=== PATIENT | female | born 1980 | race Caucasian/White ===

== ENCOUNTER 2023-07-09 10:15 | Outpatient (OUT) | payer OTHER, SELFPAY ==
--- NOTE | 2023-07-09 10:42 | XR_ITS ---
[facility] [id number] Patient Name: ROX RAGSDALE MRN: [id number] date: 1980 Sex: F Assigned Patient Location: RAD Current Patient Location: [facility] Accession/Order Number: [id number] Exam Date: 07/09/2023 10:35 Report Date: 07/09/2023 12:35 At the request of: NAREN SEVERINO Procedure: XR ankle RT min 3V PROCEDURE: XR ankle RT min 3V, XR tibia fibula RT 2V HISTORY: Ankle Sprain ; right lower leg and ankle pain after slipping and falling COMPARISON: None. FINDINGS: BONES:No fracture, acute abnormality, or significant arthropathy. Minimal residual appearance of old growth plate of distal fibula. SOFT TISSUES: Moderate lateral soft tissue swelling. EFFUSION:None visible. OTHER: Negative. XR/XR ankle RT min 3V IMPRESSION: 1. Lateral swelling suggesting soft tissue injury. 2. No acute bone abnormality. Electronically authenticated by: JAHAIRA THRASHER Date: 07/09/2023 12:35
--- NOTE | 2023-07-09 10:42 | XR_ITS ---
[facility] [place] [id number] Patient Name: ROX RAGSDALE MRN: [id number] date: 1980 Sex: F Assigned Patient Location: [facility] Current Patient Location: [facility] Accession/Order Number: [id number] Exam Date: 07/09/2023 10:35 Report Date: 07/09/2023 12:35 At the request of: NAERN SEVERINO Procedure: XR tibia fibula RT 2V PROCEDURE: XR ankle RT min 3V, XR tibia fibula RT 2V HISTORY: Ankle Sprain ; right lower leg and ankle pain after slipping and falling COMPARISON: None. FINDINGS: BONES:No fracture, acute abnormality, or significant arthropathy. Minimal residual appearance of old growth plate of distal fibula. SOFT TISSUES: Moderate lateral soft tissue swelling. EFFUSION:None visible. OTHER: Negative. XR/XR tibia fibula RT 2V IMPRESSION: 1. Lateral swelling suggesting soft tissue injury. 2. No acute bone abnormality. Electronically authenticated by: JAHAIRA THRASHER Date: 07/09/2023 12:35
== END 2023-07-09 10:16 | disposition home or self-care (01) ==
LOC: RAD 10:19
PROVIDERS: PCP Nurse Practitioner; Visit Provider Nurse Practitioner Family
DX: S93.401A Sprain of unspecified ligament of right ankle, initial encounter (principal)
CPT/HCPCS: 73590; 73610

== ENCOUNTER 2024-07-16 06:48 | Outpatient (OUT) | payer BC, SELFPAY ==
[2024-07-16 07:23] LABS: Basophils Absolute Auto 0.1 10^3/uL (0.0-0.1); Basophils Percent Auto 1.3 % (0.2-2.0); Eosinophils Absolute Auto 0.1 10^3/uL (0.0-0.7); Eosinophils Percent Auto 1.3 % (0.9-7.0); Hemoglobin 12.6 g/dL (12.0-16.0); Immature Granulocytes Abs Auto 0.03 10^3/uL (0.00-0.03); Immature Granulocytes Pct Auto 0.3 % (0.0-0.5); Lymphocytes Absolute Auto 3.3 10^3/uL (1.2-3.8); Lymphocytes Percent Auto 37.8 % (20.5-60.0); Mean Corpuscular HGB Conc 33.2 g/dL (29.9-35.2); Mean Corpuscular Hemoglobin 31.3 pg (26.7-34.0); Mean Corpuscular Volume 94.3 fL (81.0-99.0); Mean Platelet Volume 9.9 fL (9.5-13.5); Monocytes Absolute Auto 0.6 10^3/uL (0.3-0.8); Monocytes Percent Auto 6.4 % (1.7-12.0); Neutrophils Absolute Auto 4.6 10^3/uL (1.4-6.5); Neutrophils Percent Auto 52.9 % (43.0-75.0); Platelet Count 225 10^3/uL (150-450); Red Blood Count 4.03 10^6/uL (4.20-5.40); Red Cell Distribution Width 11.9 % (11.0-15.0); White Blood Count 8.6 10^3/uL (4.0-11.0)
[2024-07-16 07:48] LABS: Bilirubin Urine NEGATIVE (NEGATIVE); Blood Urine TRACE-I (NEGATIVE); Clarity Urine CLEAR (CLEAR); Color Urine YELLOW (YELLOW); Glucose Urine UA NEGATIVE (NEGATIVE); Ketones Urine NEGATIVE (NEGATIVE); Leukocyte Esterase Urine NEGATIVE (NEGATIVE); Nitrite Urine NEGATIVE (NEGATIVE); Protein Urine NEGATIVE (NEG/TRACE); pH Urine 6.5 (5.0-9.0)
[2024-07-16 08:08] LABS: Bacteria Urine SMALL #/HPF (NONE SEEN)
[2024-07-16 08:10] LABS: Cast Seen? NONE SEEN #/LPF (NONE SEEN); Crystals Seen? None Seen #/HPF (None Seen); Mucus Urine SMALL (NONE SEEN); RBC Urine 0-2 #/HPF (0-2); Squamous Epithelial Cell Urine FEW #/LPF (NONE/RARE); Trichomonas Urine SEEN (NONE SEEN); Urine Culture Indicated YES; WBC Urine 0-2 #/HPF (NONE SEEN)
[2024-07-16 08:12] LABS: Alanine Aminotransferase 23 U/L (14-59); Albumin Globulin Ratio 1.4; Alkaline Phosphatase 54 U/L (46-116); Anion Gap 13.8; Aspartate Amino Transferase 20 U/L (15-37); BUN Creatinine Ratio 11.3; Bilirubin Total 0.6 mg/dL (0.2-1.0); Calcium 8.9 mg/dL (8.5-10.1); Chloride 105 mmol/L (98-107); Chol HDL Ratio 3.2; Cholesterol 180 mg/dL (<=200); Estimated GFR (African America >60 (>=60); Estimated GFR (Non-African Ame >60 (>=60); Globulin 2.8 g/dL; Glucose 84 mg/dL (74-106); HDL Cholesterol 56 mg/dL (40-60); LDL Cholesterol Calculated 118.8 mg/dL; Potassium 3.8 mmol/L (3.5-5.1); Sodium 140 mmol/L (136-145); Thyroid Stimulating Hormone 2.621 uIU/mL (0.358-3.740); Total Protein 6.8 g/dL (6.4-8.2); Triglycerides 26 mg/dL (<=150); VLDL CHOLESTEROL 5.2 mg/dL
== END 2024-07-16 06:49 | disposition home or self-care (01) ==
LOC: LAB 06:50
PROVIDERS: PCP Nurse Practitioner; Visit Provider Nurse Practitioner
DX: Z00.00 Encounter for general adult medical examination without abnormal findings (principal)
CPT/HCPCS: 36415; 80053; 80061; 81001; 84443; 85025; 87086

== ENCOUNTER 2024-08-08 09:24 | Emergency (ER) | payer BC, SELFPAY ==
[2024-08-08 09:28] VITALS: BP 111/87; PULSE 88; TEMP 37.9; O2SAT 100; BMI 23.3
--- OUTSIDE RECORDS SUMMARY | 2024-08-08 09:29 | XMS_ITS | CCD ---
Author Organization [facility] Care Team Providers Care Maintenance Mechanic Technician Name Role Phone Unavailable Primary Care Provider UnavailKimi Vences Primary Care Provider DANIEL FAJARDO Referring Unavailable DANIEL FAJARDO Referring Unavailable SHELIA KIMI J. Primary Care Unavailable DANIEL FAJARDO Referring Unavailable SHELIA KIMI JSage Primary Care Unavailable DANIEL FAJARDO Referring Unavailable SHELIA, KIMI J. Primary Care Unavailable DANIEL FAJARDO Referring Unavailable SHELIA, KIMI J. Primary Care Unavailable DANIEL FAJARDO Attending Unavailable SUMISAUGUSTODANIEL W Admitting Unavailable DANIEL FAJARDO Attending Unavailable SHELIA, KIMI J. Primary Care Unavailable Laurihbrenda Kimi JSage Primary Care Provider [phone] AICHHOLZ, TILE PRESSER KIMI Attending Unavailable AICHHOLZ, TILE PRESSER KIMI Consulting Unavailable AICHHOLZ, TILE PRESSER KIMI Primary Care Unavailable AICHHOLZ, TILE PRESSER KIMI Admitting Unavailable AICHHOLZ, KIMI Attending Unavailable AICHHOLZ, KIMI Attending Unavailable Allergies Allergy Classification Reported Allergen(s) Allergy Type Date of Onset Reaction(s) Facility (6 sources) Amoxicillin Drug Allergy 09-30-2019 [place], [place] (1 source) Amoxicillin Drug Allergy 09-29-2015 [facility] Repository Medications Current Medications Medication Drug Class(es) Dates Sig (Normalized) Sig (Original) acetaminophen 325 mg oral tablet (2 sources) Start: 11-30-2019 End: 11-30-2019 acetaminophen (TYLENOL) tablet 650 mg acetaminophen 325 mg / oxyCODONE hydrochloride 5 mg oral tablet (2 sources) Opioid Agonist Start: 12-01-2019 End: 12-08-2019 take 1 tablet by mouth every four hours as needed for pain oxyCODONE-acetamino phen (PERCOCET) 5-325 MG per tablet Indications: History of total vaginal hysterectomy (TVH) Take 1 tablet by mouth every 4 hours as needed for Pain (postop) for up to 7 days. 28 tablet 0 12/01/2019 12/08/2019 Active Start: 11-30-2019 oxyCODONE-acet aminophen (PERCOCET) 5-325 MG per tablet 1 tablet calcium chloride 0.0014 meq/ml / potassium chloride 0.004 meq/ml / sodium chloride 0.103 meq/ml / sodium lactate 0.028 meq/ml injectable solution (2 sources) Start: 11-30-2019 End: 11-30-2019 lactated ringers infusion 0.4 ml enoxaparin sodium 100 mg/ml prefilled syringe (1 source) Low Molecular Weight Heparin Start: 12-01-2019 enoxaparin (LOVENOX) injection 40 mg escitalopram 5 mg oral tablet (7 sources) Serotonin Reuptake Inhibitor Start: 12-01-2019 take 10 mg by mouth once daily 10 mg, Oral, DAILY, First dose on Deepika 12/01/19 at 0900 Start: 07-11-2019 take 1 tablet by alayna th once daily escitalopram (LEXAPRO) 10 MG tablet Take 10 mg by mouth daily 0 07/11/2019 Active gentamicin (GARAMYCIN) 124 mg in dextrose 5 % 100 mL IVPB (1 source) Start: 12-01-2019 End: 12-01-2019 gentamicin (GARAMYCIN) 124 mg in dextrose 5 % 100 mL IVPB levothyroxine sodium 0.025 mg oral tablet (7 sources) l-Thyroxine Start: 08-25-2019 take 1 tablet by mouth once daily levothyroxine (SYNTHROID) 25 MCG tablet Take 25 mcg by mouth Daily 0 08/25/2019 Active 2 ml ondansetron 2 mg/ml injection (1 source) Serotonin-3 Receptor Antagonist Start: 11-30-2019 ondansetron (ZOFRAN) injection 4 mg 3 ml sodium chloride 9 mg/ml injection (2 sources) Start: 11-30-2019 sodium chlorid e flush 0.9 % injection 10 mL Completed/Discontinued Medications Medication Drug Class(es) Dates Sig (Normalized) Sig (Original) dimenhyDRINATE 50 mg oral tablet (1 source) Start: 11-30-2019 End: 11-30-2019 dimenhyDRINATE (DRAMAMINE) tablet 50 mg Start: 11-30-2019 End: 11-30-2019 dimenhyDRINATE (DRAMAMINE) t ablet 50 mg gabapentin 300 mg oral capsule (1 source) Anti-epileptic Agent Start: 11-30-2019 End: 11-30-2019 gabapentin (NEURONTIN) capsule 600 mg Start: 11-30-2019 End: 11-30-2019 gabapentin (NEURONTIN) capsu le 600 mg 72 hr scopolamine 0.0139 mg/hr transdermal system (1 source) Anticholinergic Start: 11-30-2019 End: 11-30-2019 scopolamine (TRANSDERM-SCOP) transdermal patch 1 patch sulfamethoxazole 800 mg / trimethoprim 160 mg oral tablet (3 sources) Dihydrofolate Reductase Inhibitor Antibacterial, Sulfonamide Antimicrobial Start: 10-27-2019 End: 11-28-2019 sulfamethoxazole-trime thoprim (BACTRIM DS;SEPTRA DS) 800-160 MG per tablet Problems Active Problems Problem Classification Problem Date Documented Date Episodic/Chronic Genitourinary symptoms and ill-defined conditions (4 sources) Unspecified symptoms and signs involving the genitourinary system; Translations: [UNS SYMPTOMS SIGNS INVLV SYSTEM] Onset: 03-19-2023 Episodic Prolapse of female genital organs (3 sources) Uterine prolapse Chronic Unclassified (3 sources) Patient encounter status; Translations: [Women's annual routine gynecological examination] Past or Other Problems Problem Classification Problem Date Documented Da te Episodic/Chronic Benign neoplasm of uterus (3 sources) Intramural leiomyoma of uterus Episodic Other screening for suspected conditions (not mental disorders or infectious disease) (2 sources) Mammography abnormal Episodic Results Test Name Value Interpretation Reference Range Facility CULTURE URINEon 03-19-2023 CULTURE URINE Culture Observations: NO GROWTH. Normal [facility] Comment on above: Performed By: #### U RCX #### [facility] [address] [place] [address] Dr. Yaneth Adkins Facesheeton 04-24-2020 Facesheet [id number] #1.00CD:127 Normal [facility] Consultation Noteon 04-23-20 20 Consultation Note [id number]# 1.00CD:127 Normal [facility] Ambulatory Clinical Summaryo n 04-20-2020 Ambulatory Clinical Summary {[id number] Normal [facility] Operative Reporton 0 Operative Report [id number] #1.00CD:127 Normal [facility] Pathology Noteon 04-20-2020 Pathology Note [id number] #1.00CD:127 Normal [facility] CBC auto differentialOrdered By: Daniel Fajardo on 12-01-2019 Absolute Eos # <0.03 [employer] [facility] Work Phone: Absolute Immature Granulocyte 0.04 [employer] Work Phone: Absolute Lymph # 3.08 [employer] [facility] Work Phone: Absolute [place] # 0.84 [facility] Work Phone: Basophils (Bld) [#/Vol] 0.04 10*3/uL [employer] Work Phone: Basophils/100 WBC (Bld) 0 % 0 - 2 % [facility] Work Phone: Differential Type NOT REPORTED [employer] Phone: Eosinophils/100 WBC (Bld) 0 % Low 1 - 4 % [employer] Phone: Erythrocyte distribution width (RBC) [Ratio] 12.0 % 11.8 - 14.4 % [employer] Phone: Hematocrit (Bld) [Volume fraction] 35.7 % Low 36.3 - 47.1 % [employer] Phone: Hemoglobin (Bld) [Mass/Vol] 11.7 g/dL Low 11.9 - 15.1 g/dL [employer] Phone: Immature granulocytes/100 WBC (Bld) 0 % 0 [employer] Phone: Interpretation and review of laboratory results Abnormal [employer] Phone: Lymphocytes/100 WBC (Bld) 26 % 24 - 43 % [employer] Phone: MCH (RBC) [Entitic mass] 30.5 pg 25.2 - 33.5 pg [employer] Phone: MCHC (RBC) [Mass/Vol] 32.8 g/dL 28.4 - 34.8 g/dL [employer] Phone: MCV (RBC) [Entitic vol] 93.2 fL 82.6 - 102.9 fL [employer] Phone: Monocytes/100 WBC (Bld) 7 % 3 - 12 % M [employer] Phone: NRBC Automated 0.0 0.0 per 100 WBC [employer] Phone: Platelet Estimate NOT REPORTED [employer] Phone: Platelet mean volume (Bld) [Entitic vol] 10.1 fL 8.1 - 13.5 fL [employer] Phone: Platelets (Bld) [#/Vol] 210 10*3/uL [employer] Phone: RBC (Bld) [#/Vol] 3.83 10*6/uL Low 3.95 - 5.1 1 m/uL [employer] Phone: RBC morphology finding Nom (Bld) NOT REPORTED [employer] Phone: Segmented neutrophils/100 WBC (Bld) 67 % High 36 - 65 % [employer] Phone: Segs Absolute 8.01 [facility] Work Phone: WBC (Bld) [#/Vol] 12.0 10*3/uL High [facility] Work Phone: WBC Morphology NOT REPORTED [facility] Work Phone: CBC with Diffon 12-01-2019 Abs. Basophil 0.04 k/uL Normal 0.00-0.20 [facility] Comment on above: Performed By: #### C DP #### [facility] [address] [place] [address] Radiology Technician: Kofi Harrell MD Abs.Imm.Granulocyte 0.04 k/uL Normal 0.00-0.30 [facility] Comment on above: Performed By: #### C DP #### [facility] [address] [place] [facility] Radiology Technician: Kofi Harrell MD Abs.Neutrophil (Seg) 8.01 k/uL Normal 1.50-8.[address] [facility] Comment on above: Performed By: #### C DP #### [facility] [address] [place] [address] Radiology Technician: Kofi Harrell MD Basophils/100 WBC (Bld) 0 % Normal 0-2 [facility] Comment on above: Performed By: #### C DP #### [facility] [address] [place] [address] Radiology Technician: Kofi Harrell MD Eosinophils (Bld) [#/Vol] 10*3/uL Normal 0.00-0.44 [facility] Comment on above: Performed By: #### C DP #### [facility] [address] [place], [place] [id number] Radiology Technician: Kofi Harrell MD Eosinophils/100 WBC (Bld) 0 % Low 1-4 [facility] Comment on above: Performed By: #### C DP #### [facility] [address] [place] [address] Radiology Technician: Kofi Harrell MD Erythrocyte distribution width (RBC) [Ratio] 12.0 % Normal 11.8-14.4 [facility] Comment on above: Performed By: #### C DP #### [facility] [address] [place] [facility] Radiology Technician: Kofi Harrell MD Hematocrit (Bld) [Volume fraction] 35.7 % Low 36.3-47.1 [facility] Comment on above: Performed By: #### C DP #### [facility] [address] [place] [facility] Radiology Technician: Kofi Harrell MD Hemoglobin (Bld) [Mass/Vol] 11.7 g/dL Low 11.9-15.1 [facility] Comment on above: Performed By: #### C DP #### [facility] [address] [place] [facility] Radiology Technician: Kofi Harrell MD Immature granulocytes (Bld) [#/Vol] 0 % Normal 0 [facility] Comment on above: Performed By: #### C DP #### [facility] [address] [place] [facility] Radiology Technician: Kofi Harrell MD Lymphocytes (Bld) [#/Vol] 3.08 10*3/uL Normal 1.10-3.70 [facility] Comment on above: Performed By: #### C DP #### [facility] [address] [place] [facility] Radiology Technician: Kofi Harrell MD Lymphocytes/100 WBC (Bld) 26 % Normal 24-43 [facility] Comment on above: Performed By: #### C DP #### [facility] [address] [place] [facility] Radiology Technician: Kofi Harrell MD MCH (RBC) [Entitic mass] 30.5 pg Normal 25.2-33.5 [facility] Comment on above: Performed By: #### C DP #### [facility] [address] [place] [id number] Radiology Technician: Kofi Harrell MD MCHC (RBC) [Mass/Vol] 32.8 g/dL Normal 28.4-34.8 [facility] Comment on above: Performed By: #### C DP #### [facility] [address] [place] [facility] Radiology Technician: Kofi Harrell MD MCV (RBC) [Entitic vol] 93.2 fL Normal 82.6-102.9 [facility] Comment on above: Performed By: #### C DP #### [facility] [address] [place] [id number] Radiology Technician: Kofi Harrell MD Monocytes (Bld) [#/Vol] 0.84 10*3/uL Normal 0.10-1.20 [facility] Comment on above: Performed By: #### C DP #### [facility] [address] [place] [id number] Radiology Technician: Kofi Harrell MD Monocytes/100 WBC (Bld) 7 % Normal 3-12 [facility] Comment on above: Performed By: #### C DP #### [facility] [address] [place] [facility] Radiology Technician: Kofi Harrell MD Neutrophil (Seg) 67 % High 36-65 [facility] Comment on above: Performed By: #### C DP #### [facility] [address] [place] [facility] Radiology Technician: Kofi Harrell MD NRBC Automated 0.0 per 100 WBC Normal 0.0 [facility] Comment on above: Performed By: #### C DP #### [facility] [address] [place] [facility] Radiology Technician: Kofi Harrell MD Platelet mean volume (Bld) [Entitic vol] 10.1 fL Normal 8.1-13.5 [facility] Comment on above: Performed By: #### C DP #### [facility] [address] [place] [address] Radiology Technician: Kofi Harrell MD Platelets (Bld) [#/Vol] 210 10*3/uL Normal 138-453 [facility] Comment on above: Performed By: #### C DP #### [facility] [address] [place] [address] Radiology Technician: Kofi Harrell MD RBC (Bld) [#/Vol] 3.83 10*6/uL Low 3.95-5.11 [facility] Comment on above: Performed By: #### C DP #### [facility] [address] [place], [facility] Radiology Technician: Kofi Harrell MD WBC (Bld) [#/Vol] 12.0 10*3/uL High 3.5-11.3 [facility] Comment on above: Performed By: #### C DP #### [facility] [address] [place], [place] [id number] Radiology Technician: Kofi Harrell MD Auto Diff Performed NOT REPORTED Normal [facility] Comment on above: Performed By: #### C DP #### [facility] [address] [place], [place] [id number] ([address] Radiology Technician: Kofi Harrell MD Platelets (Bld) [#/Vol] NOT REPORTED Normal [facility] Comment on above: Performed By: #### C DP #### [facility] [address] [place], [place] [id number] Radiology Technician: Kofi Harrell MD RBC morphology finding Nom (Bld) NOT REPORTED Normal [facility] Comment on above: Performed By: #### C DP #### [address] [place] [address] Radiology Technician: Kofi Harrell MD WBC Morphology NOT REPORTED Normal [facility] Comment on above: Performed By: #### C DP #### [address] [place] [address] Radiology Technician: Kofi Harrell MD Hemoglobin and hematocrit, b loodOrdered By: Daniel Fajardo on 11-30-2019 Hematocrit (Bld) [Volume fraction] 39.7 % 36.3 - 47.1 % [facility] Work Phone: Hemoglobin (Bld) [Mass/Vol] 13.0 g/dL 11.9 - 15.1 g/dL [facility] Work Phone: Hgb/Hcton 11-30-2019 Hematocrit (Bld) [Volume fraction] 39.7 % Normal 36.3-47.1 [facility] Comment on above: Performed By: #### H H #### [address] [place], [place] [address] Radiology Technician: Kofi Harrell MD Hemoglobin (Bld) [Mass/Vol] 13.0 g/dL Normal 11.9-15.1 [facility] Comment on above: Performed By: #### H H #### [address] [place], [place] [id number] Radiology Technician: Kofi Harrell MD OPERATIVE REPORTon 0 OPERATIVE REPORT [address] [phone] OPERATIVE REPORT PATIENT NAME: MEGAN RAGSDALE V : 1980 MED REC NO: [id number] ROOM: ACCOUNT NO: [id number] ADMIT DATE: 11/30/2019 PROVIDER: Daniel Fajardo MD DATE OF PROCEDURE: 11/30/2019 PREOPERATIVE DIAGNOSIS: Symptomatic uterine prolapse with known uterine fibroids. POSTOPERATIVE DIAGNOSIS: Symptomatic uterine prolapse with known uterine fibroids. SURGICAL PROCEDURE: Total vaginal hysterectomy and right salpingectomy (left tube absent). ANESTHESIA: General. ESTIMATED BLOOD LOSS: 200 mL. COMPLICATIONS OF THE PROCEDURE: None. FINDING: An enlarged fibroid uterus to about 8-week size with a moderate degree of uterine prolapse, normal-appearing ovaries, normal-appearing right tube, absent left tube. DESCRIPTION OF PROCEDURE: The patient was taken to the operating room. General anesthesia was administered and the patient was placed in the dorsal lithotomy position. She did undergo perineal hair clipping, vaginal prepping and perineal prepping, drainage of the bladder, and appropriate draping. She was in the dorsal lithotomy position. Charge Machine Operator then with the aid of retractors got the cervix well visualized and grasped with four-tooth tenaculum on the cervix. Diluted Marcaine with epinephrine was injected around the cervix into the vaginal mucosa to minimize blood loss. After this was done, a circumferential incision was made around the cervix at appropriate location. Then, the peritoneum was entered posteriorly by gentle traction on this peritoneum and this was extended and retractor was placed posteriorly. Care was taken to make certain that the vaginal mucosa was mobilized on the plane of the endopelvic fascia out of the remainder of the field. Then, Neli clamps were placed over the uterosacral ligaments on each side. These pedicles were divided and ligated with 0 Vicryl and held. Then, an additional throw each side was placed over the inferior portion of the cardinal ligament. These pedicles were divided, ligated with a 0 Vicryl suture. Then, the peritoneum was entered anteriorly and then retractor was placed elevating the bladder and ureters out of the operative field for the remainder of the procedure. Then, Neli clamps were placed over the superior portion of the cardinal ligament grasping the peritoneum on each side including this into the pedicle. These pedicles were then divided and ligated with 0 Vicryl. Similarly then the uterines were grasped including the peritoneum superiorly and inferiorly. Pedicles were divided and ligated. Of note that the uterus was larger than average, so a few of these were placed over the broad ligament with Neli clamps, dividing and ligating the broad ligament until at last the ovarian ligament was reached. These were grasped with the Neli clamp, tied and flashed and then tied again over the ovarian ligaments. Excellent hemostasis was noted with all of these pedicles. Attention then was turned to placing some cautery over the edges of the cuff that were lightly bleeding. There was an area where the peritoneum at about the 7 o'clock area had and this was sutured separately with 2-0 Vicryl to ensure good hemostasis. Packing was placed into the pelvis to allow excellent visualization of all pedicles internally. The right tube was visualized and removed in its entirety, the remaining portion at least, and then this pedicle was then ligated with 0 Vicryl suture as well. The left ovary was clearly viewed, but there appeared to be no visual remaining portion of the tube on the left side and this was with careful visualization. Then, the peritoneum was brought together in the midline. Transfixion sutures were placed with 0 Vicryl over both lateral portions of the cuff. Then, the cuff was carefully closed in a running interlocking fashion with 0 Vicryl suture. A few additional sutures were placed with 2-0 Vicryl to minimize any raw edges along the cuff. Catheter was placed into the bladder upon completion of the procedure and there was copious clear urine noted and then vaginal packing was performed with 1-inch iodoform gauze. All sponge, needle, and instrument counts were noted to be correct. DANIEL FAJARDO MD [id number] Doc#: [id number] CC: [facility] Surgical Pathologyon 020 Surgical Pathology (NOTE) [id number] [facility] ANATOMIC PATHOLOGY [address] [place] [id number] SURGICAL PATHOLOGY CONSULTATION Patient Name: MEGAN RAGSDALE V. [facility] Rec: [id number] Path Number: [id number] Collected: 11/30/2019 Received: 11/30/2019 Reported: 12/01/2019 12:21 -- Diagnosis -- UTERUS, CERVIX AND RIGHT FALLOPIAN TUBE, HYSTERECTOMY WITH RIGHT SALPINGECTOMY: -CERVIX: CHRONIC CERVICITIS. -ENDOMYOMETRIUM: -PROLIFERATIVE PHASE ENDOMETRIUM WITH HORMONE EFFECT. -LEIOMYOMATA. -RIGHT FALLOPIAN TUBE: NO SIGNIFICANT HISTOPATHOLOGIC CHANGE. -NEGATIVE FOR ATYPIA OR MALIGNANCY. Ted Renteria M.D. Electronically Signed Out jet/12/01/2019 Clinical Information Pre-op Diagnosis: SYMPTOMATIC FIBROIDS Operative Findings: UTERUS, CERVIX AND RIGHT TUBE Operation Performed: HYSTERECTOMY VAGINAL, TOTAL, RIGHT SALPINGECTOMY Source of Specimen 1: UTERUS, CERVIX AND RIGHT TUBE Gross Description MEGAN RAGSDALE, UTERUS, CERVIX AND RIGHT TUBE Uterus with attached cervix and two separate segments of fallopian tube, one of which is fimbriated. Dimensions: Uterus and cervix 12.5 x 7.8 x 7.1 cm. Weight: Uterus and cervix 236 grams. Serosa: [employer]-de anda and distorted. Cervix: 4.8 x 4.8 x 4.3 cm, unremarkable with a patent os. Endometrium: The cavity is 7.0 x 3.0 cm with a pink-de anda surface and is 0.1 cm in thickness. Myometrium: The myometrium has a maximum thickness of 5.0 cm with multiple de anda-white, whorled myomatous nodules up to 4.5 cm. The center of the largest nodule is cavitary with no hemorrhage or necrosis. Tubes/ovaries: The tube segments are 1.5 cm and 3.0 cm in length and 0.4 cm in diameter. The serosal surfaces are pink-de anda and the lumina are unremarkable. Cassette summary: A anterior cervix, B posterior cervix, C-D anterior endomyometrium full thickness sections, E-F posterior endomyometrium including largest myomatous nodule, G tube entirely. tm Microscopic Description Microscopic examination performed. [facility] Comment on above: Performed By: #### P PPVS ####[facility] [address] [place] [address] Lab Director: Jag Huerta MD Cult,Urineon 11-29-2019 Cult,Urine Specimen Description .CLEAN CATCH URINE Special Requests NOT REPORTED Culture NO SIGNIFICANT GROWTH Report Status FINAL 11/29/2019 [facility] Comment on above: Performed By: #### U RC #### [email or web address] [address] [place], [place] [id number] Radiology Technician: Jag Huerta MD [facility] [address] [place] [address] Radiology Technician: Kofi Harrell MD Urine CultureOrdered By: Augusto Fajardo on 11-29-2019 Bacteria identified Cx Nom (U) NO SIGNIFICANT GROWTH [employer] Work Phone: Special Requests NOT REPORTED [employer] Phone: Specimen Description .CLEAN CATCH URINE [employer] Phone: CBC Auto DifferentialOrdered By: Daniel Fajardo on 11-28-2019 Absolute Eos # 0.05 [employer] [facility] Work Phone: Absolute Immature Granulocyte 0.04 [employer] Work Phone: Absolute Lymph # 3.28 [employer] [facility] Work Phone: Absolute [place] # 0.60 [employer] [facility] Work Phone: Basophils (Bld) [#/Vol] 0.07 10*3/uL [employer] Phone: Basophils/100 WBC (Bld) 1 % 0 - 2 % M [employer] Phone: Differential Type NOT REPORTED [employer] Phone: Eosinophils/100 WBC (Bld) 1 % 1 - 4 % [employer] Phone: Erythrocyte distribution width (RBC) [Ratio] 12.2 % 11.8 - 14.4 % [employer] Phone: Hematocrit (Bld) [Volume fraction] 42.1 % 36.3 - 47.1 % [employer] Phone: Hemoglobin (Bld) [Mass/Vol] 13.4 g/dL 11.9 - 15.1 g/dL [employer] Phone: Immature granulocytes/100 WBC (Bld) 0 % 0 [employer] Phone: Lymphocytes/100 WBC (Bld) 36 % 24 - 43 % [employer] Phone: MCH (RBC) [Entitic mass] 30.5 pg 25.2 - 33.5 pg [employer] Phone: MCHC (RBC) [Mass/Vol] 31.8 g/dL 28.4 - 34.8 g/dL [facility] Phone: MCV (RBC) [Entitic vol] 95.9 fL 82.6 - 102.9 fL [facility] Phone: Monocytes/100 WBC (Bld) 7 % 3 - 12 % M [facility] Phone: NRBC Automated 0.0 0.0 per 100 WBC [facility] [employer] Phone: Platelet Estimate NOT REPORTED [facility] [employer] Phone: Platelet mean volume (Bld) [Entitic vol] 9.8 fL 8.1 - 13.5 fL [facility] Phone: Platelets (Bld) [#/Vol] 257 10*3/uL [facility] Phone: RBC (Bld) [#/Vol] 4.39 10*6/uL 3.95 - 5.1 1 m/uL [facility] Phone: RBC morphology finding Nom (Bld) NOT REPORTED [facility] [employer] Work Phone: Segmented neutrophils/100 WBC (Bld) 55 % 36 - 65 % [facility] [employer] Work Phone: Segs Absolute 5.09 [place] Work Phone: WBC (Bld) [#/Vol] 9.1 10*3/uL [facility] [employer] Work Phone: WBC Morphology NOT REPORTED [facility] Work Phone: CBC with Diffon 11-28-2019 Abs. Basophil 0.07 k/uL Normal 0.00-0.20 [facility] Comment on above: Performed By: #### C DP #### [facility] [address] [place] [address] Radiology Technician: Kofi Harrell MD Abs.Imm.Granulocyte 0.04 k/uL Normal 0.00-0.30 [facility] Comment on above: Performed By: #### C DP #### [facility] [address] [place], [place] [address] Radiology Technician: Kofi Harrell MD Abs.Neutrophil (Seg) 5.09 k/uL Normal 1.50-8.[address] [facility] Comment on above: Performed By: #### C DP #### [facility] [address] [place] [address] Radiology Technician: Kofi Harrell MD Basophils/100 WBC (Bld) 1 % Normal 0-2 M [facility] Comment on above: Performed By: #### C DP #### [facility] [address] [place] [address] Radiology Technician: Kofi Harrell MD Eosinophils (Bld) [#/Vol] 0.05 10*3/uL Normal 0.00-0.44 [facility] Comment on above: Performed By: #### C DP #### [facility] [address] [place], [place] [address] Radiology Technician: Kofi Harrell MD Eosinophils/100 WBC (Bld) 1 % Normal 1-4 [facility] Comment on above: Performed By: #### C DP #### [facility] [address] [place] [address] Radiology Technician: Kofi Harrell MD Erythrocyte distribution width (RBC) [Ratio] 12.2 % Normal 11.8-14.4 [facility] Comment on above: Performed By: #### C DP #### [facility] [address] [place] [address] Radiology Technician: Kofi Harrell MD Hematocrit (Bld) [Volume fraction] 42.1 % Normal 36.3-47.1 [facility] Comment on above: Performed By: #### C DP #### [facility] [address] [place] [id number] Radiology Technician: Kofi Harrell MD Hemoglobin (Bld) [Mass/Vol] 13.4 g/dL Normal 11.9-15.1 [facility] Comment on above: Performed By: #### C DP #### [facility] [address] [place] [id number] Radiology Technician: Kofi Harrell MD Immature granulocytes (Bld) [#/Vol] 0 % Normal 0 [facility] Comment on above: Performed By: #### C DP #### [facility] [address] [place] [id number] Radiology Technician: Kofi Harrell MD Lymphocytes (Bld) [#/Vol] 3.28 10*3/uL Normal 1.10-3.70 [facility] Comment on above: Performed By: #### C DP #### [facility] [address] [place], [place] [id number] Radiology Technician: Kofi Harrell MD Lymphocytes/100 WBC (Bld) 36 % Normal 24-43 [facility] Comment on above: Performed By: #### C DP #### [address] [place] [id number] Radiology Technician: Kofi Harrell MD MCH (RBC) [Entitic mass] 30.5 pg Normal 25.2-33.5 [facility] Comment on above: Performed By: #### C DP #### [address] [place] [id number] Radiology Technician: Kofi Harrell MD MCHC (RBC) [Mass/Vol] 31.8 g/dL Normal 28.4-34.8 [facility] Comment on above: Performed By: #### C DP #### [facility] [address] [place] [address] Radiology Technician: Kofi Harrell MD MCV (RBC) [Entitic vol] 95.9 fL Normal 82.6-102.9 [facility] Comment on above: Performed By: #### C DP #### [facility] [address] [place], [place] [id number] Radiology Technician: Kofi Harrell MD Monocytes (Bld) [#/Vol] 0.60 10*3/uL Normal 0.10-1.20 [facility] Comment on above: Performed By: #### C DP #### [facility] [address] [place], [place] [id number] Radiology Technician: Kofi Harrell MD Monocytes/100 WBC (Bld) 7 % Normal 3-12 [facility] Comment on above: Performed By: #### C DP #### [facility] [address] [place], [place] [id number] Radiology Technician: Kofi Harrell MD Neutrophil (Seg) 55 % Normal 36-65 [facility] Comment on above: Performed By: #### C DP #### [facility] [address] [place], [place] [id number] Radiology Technician: Kofi Harrell MD NRBC Automated 0.0 per 100 WBC Normal 0.0 [facility] Comment on above: Performed By: #### C DP #### [facility] [address] [place], [place] [id number] Radiology Technician: Kofi Harrell MD Platelet mean volume (Bld) [Entitic vol] 9.8 fL Normal 8.1-13.5 [facility] Comment on above: Performed By: #### C DP #### [facility] [address] [place], [place] [address] Radiology Technician: Kofi Harrell MD Platelets (Bld) [#/Vol] 257 10*3/uL Normal 138-453 [facility] Comment on above: Performed By: #### C DP #### [facility] [address] [place] [address] Radiology Technician: Kofi Harrell MD RBC (Bld) [#/Vol] 4.39 10*6/uL Normal 3.95-5.11 [facility] Comment on above: Performed By: #### C DP #### [facility] [address] [place], [place] [id number] Radiology Technician: Kofi Harrell MD WBC (Bld) [#/Vol] 9.1 10*3/uL Normal 3.5-11.3 [facility] Comment on above: Performed By: #### C DP #### [facility] [address] [place], [place] [id number] Radiology Technician: Kofi Harrell MD Auto Diff Performed NOT REPORTED Normal [facility] Comment on above: Performed By: #### C DP #### [facility] [address] [place], [place] [id number] Radiology Technician: Kofi Harrell MD Platelets (Bld) [#/Vol] NOT REPORTED Normal [facility] Comment on above: Performed By: #### C DP #### [facility] [address] [place] [address] Radiology Technician: Kofi Harrell MD RBC morphology finding Nom (Bld) NOT REPORTED Normal [facility] Comment on above: Performed By: #### C DP #### [facility] [address] [place] [address] Radiology Technician: Kofi Harrell MD WBC Morphology NOT REPORTED Normal [facility] Comment on above: Performed By: #### C DP #### [facility] [address] [place], [place] [id number] Radiology Technician: Kofi Harrell MD TYPE AND SCREENOrdered By: Giuseppe Fajardo on 11-28-2019 ABO/Rh Positive [facility] Work Phone: Arm Band Number [id number] [facility] Work Phone: Expiration Date 12/05/2019,2359 [facility] Work Phone: Type + Screenon 11-28-2019 Type + Screen Sample Expiration 12/05/2019,2359 Arm Band Number [id number] ABO/Rh(D) A POSITIVE Antibody Screen NEGATIVE Normal [facility] Comment on above: Performed By: #### T YS #### [facility] [address] [place] [address] Radiology Technician: Kofi Harrell MD [facility] DIGITAL DIAGNOSTIC W OR WO CAD RIGHTon 11-24-2019 [facility] DIGITAL DIAGNOSTIC W OR WO CAD RIGHT EXAMINATION: DIAGNOSTIC DIGITAL RIGHT BREAST MAMMOGRAM 11/24/2019 TECHNIQUE: Diagnostic mammography of the right breast was performed with tomosynthesis. Computer aided detection was utilized in the interpretation of this exam. VIEWS: Right ML, right spot CC, right spot MLO COMPARISON: 10/05/2019 HISTORY: Focal asymmetry in right breast at baseline screening. Family history of breast cancer. FINDINGS: The breast is heterogeneously dense, which may obscure small masses. Asymmetries in the central breast at mid depth disperse into glandular tissue with spot compression with no corresponding tomographic abnormalities. No new dominant masses, suspicious calcifications, nor areas of architectural distortion are seen. IMPRESSION: Summation artifact accounts for the focal asymmetry seen in the right breast at screening. No follow-up is recommend. BIRADS: BIRADS - CATEGORY 1 Negative, no evidence of malignancy. Normal interval follow-up is recommended in 12 months. OVERALL ASSESSMENT - NEGATIVE A letter of notification will be sent to the patient regarding the results. [employer] recommends annual mammograms for women 40 years and older. Interpreted by: Benitez Ferrera MD Signed by: Benitez Ferrera MD 11/24/19 Final result Normal [facility] DIGITAL DIAGNOSTIC W OR WO CAD RIGHTOrdered By: Daniel Fajardo on 11-24-2019 Summation artifact accounts for the focal asymmetry seen in the right breast at screening. No follow-up is recommend. BIRADS: BIRADS - CATEGORY 1 Negative, no evidence of malignancy. Normal interval follow-up is recommended in 12 months. OVERALL ASSESSMENT - NEGATIVE A letter of notification will be sent to the patient regarding the results. [employer] [place] [employer] recommends annual mammograms for women 40 years and older. [employer] Phone: EXAMINATION: DIAGNOSTIC DIGITAL RIGHT BREAST MAMMOGRAM 11/24/2019 TECHNIQUE: Diagnostic mammography of the right breast was performed with tomosynthesis. Computer aided detection was utilized in the interpretation of this exam. VIEWS: Right ML, right spot CC, right spot MLO COMPARISON: 10/05/2019 HISTORY: Focal asymmetry in right breast at baseline screening. Family history of breast cancer. FINDINGS: The breast is heterogeneously dense, which may obscure small masses. Asymmetries in the central breast at mid depth disperse into glandular tissue with spot compression with no corresponding tomographic abnormalities. No new dominant masses, suspicious calcifications, nor areas of architectural distortion are seen. [employer] Phone: [place], [employer] Incoming [employer]iant Results From [employer] - 11/24/2019 9:52 AM EST EXAMINATION: DIAGNOSTIC DIGITAL RIGHT BREAST MAMMOGRAM 11/24/2019 TECHNIQUE: Diagnostic mammography of the right breast was performed with tomosynthesis. Computer aided detection was utilized in the interpretation of this exam. VIEWS: Right ML, right spot CC, right spot MLO COMPARISON: 10/05/2019 HISTORY: Focal asymmetry in right breast at baseline screening. Family history of breast cancer. FINDINGS: The breast is heterogeneously dense, which may obscure small masses. Asymmetries in the central breast at mid depth disperse into glandular tissue with spot compression with no corresponding tomographic abnormalities. No new dominant masses, suspicious calcifications, nor areas of architectural distortion are seen. IMPRESSION: Summation artifact accounts for the focal asymmetry seen in the right breast at screening. No follow-up is recommend. BIRADS: BIRADS - CATEGORY 1 Negative, no evidence of malignancy. Normal interval follow-up is recommended in 12 months. OVERALL ASSESSMENT - NEGATIVE A letter of notification will be sent to the patient regarding the results. [employer] [place] [employer] recommends annual mammograms for women 40 years and older. [employer] Phone: [facility] DIGITAL SCREEN W CAD MINERVA ATERALon 10-15-2019 Focal asymmetry in the retroareolar area the right breast middle depth with additional mammographic workup advised. Full workup may require ultrasonography. BREAST DENSITY SUMMARY C: The breasts are heterogeneously dense which may obscure small masses. BI-RADS 0 BIRADS: BIRADS - CATEGORY 0 Additional right breast imaging is recommended at this time. OVERALL ASSESSMENT - INCOMPLETE:NEED ADDITIONAL IMAGING EVALUATION. [facility]: BILATERAL DIGITAL SCREENING MAMMOGRAM, 10/14/2019 TECHNIQUE: CC and MLO views of the left and right breasts were obtained. Computer aided detection was utilized in the interpretation of this exam. 3D tomosynthesis images were obtained. COMPARISON: None. Baseline study. HISTORY: Screening. Positive family history of breast cancer; maternal aunt younger than age 60. Negative history of hormonal replacement therapy. No prior breast interventions. FINDINGS: The breasts are heterogeneously dense which can obscure small masses. Focal asymmetry is present in the retroareolar area of the right breast middle depth with additional mammographic workup advised. Full workup may require ultrasonography. No skin thickening, nipple contour changes, malignant type microcalcifications, or areas of architectural distortion are noted. [facility] [place], Barbie Incoming Radiant Results From [employer] - 10/15/2019 3:07 PM EST EXAMINATION: BILATERAL DIGITAL SCREENING MAMMOGRAM, 10/14/2019 TECHNIQUE: CC and MLO views of the left and right breasts were obtained. Computer aided detection was utilized in the interpretation of this exam. 3D tomosynthesis images were obtained. COMPARISON: None. Baseline study. HISTORY: Screening. Positive family history of breast cancer; maternal aunt younger than age 60. Negative history of hormonal replacement therapy. No prior breast interventions. FINDINGS: The breasts are heterogeneously dense which can obscure small masses. Focal asymmetry is present in the retroareolar area of the right breast middle depth with additional mammographic workup advised. Full workup may require ultrasonography. No skin thickening, nipple contour changes, malignant type microcalcifications, or areas of architectural distortion are noted. IMPRESSION: Focal asymmetry in the retroareolar area the right breast middle depth with additional mammographic workup advised. Full workup may require ultrasonography. BREAST DENSITY SUMMARY C: The breasts are heterogeneously dense which may obscure small masses. BI-RADS 0 BIRADS: BIRADS - CATEGORY 0 Additional right breast imaging is recommended at this time. OVERALL ASSESSMENT - INCOMPLETE:NEED ADDITIONAL IMAGING EVALUATION. [facility] DIGITAL SCREEN W OR WO C AD BILATERALon 10-15-2019 [facility] DIGITAL SCREEN W OR WO CAD BILATERAL EXAMINATION: BILATERAL DIGITAL SCREENING MAMMOGRAM, 10/14/2019 TECHNIQUE: CC and MLO views of the left and right breasts were obtained. Computer aided detection was utilized in the interpretation of this exam. 3D tomosynthesis images were obtained. COMPARISON: None. Baseline study. HISTORY: Screening. Positive family history of breast cancer; maternal aunt younger than age 60. Negative history of hormonal replacement therapy. No prior breast interventions. FINDINGS: The breasts are heterogeneously dense which can obscure small masses. Focal asymmetry is present in the retroareolar area of the right breast middle depth with additional mammographic workup advised. Full workup may require ultrasonography. No skin thickening, nipple contour changes, malignant type microcalcifications, or areas of architectural distortion are noted. IMPRESSION: Focal asymmetry in the retroareolar area the right breast middle depth with additional mammographic workup advised. Full workup may require ultrasonography. BREAST DENSITY SUMMARY C: The breasts are heterogeneously dense which may obscure small masses. BI-RADS 0 BIRADS: BIRADS - CATEGORY 0 Additional right breast imaging is recommended at this time. OVERALL ASSESSMENT - INCOMPLETE:NEED ADDITIONAL IMAGING EVALUATION. Interpreted by: Megan Hogue MD Signed by: Megan Hogue MD 10/15/19 Final result Normal [facility] Cytologyon 09-30-2019 Cytology (NOTE) [id number] [employer] [facility] ANATOMIC PATHOLOGY [address] [place] [address]. [place], [place] [address] GYNECOLOGIC CYTOLOGY REPORT Patient Name: MEGAN RAGSDALE V. MR#: [id number] Specimen #[id number] Source: 1: Cervical material, (ThinPrep vial, Imaging-assisted review) Clinical History Endometrial ablation Z01.419 Routine institution director exam without abnormal findings High Risk HPV DNA testing is requested if the diagnosis is ASC-US LMP: 09/16/2019 INTERPRETATION Cervical material, (ThinPrep vial, Imaging-assisted review): Specimen Adequacy: Satisfactory for evaluation. - Endocervical/transfo rmation zone component present. - Scant cellularity, predominantly inflammatory exudate. Descriptive Diagnosis: Negative for intraepithelial lesion or malignancy. Reactive cellular changes associated with inflammation (encompasses typical repair). Shift in enedina suggestive of bacterial vaginosis. Bottling Room Worker: DEANA Huerta M.D. Electronically Signed [facility]/10/06/2019 Normal [facility] Comment on above: Performed By: #### P PPVP #### [employer] [address] [place] [address] Radiology Technician: Jag Huerta MD Vital Signs Date Time Vital Sign Value Performing Clinician Gabi arango 12-01-2019 06:40-0500 Body temperature 97.9 [degF] Daniel Fajardo MD Work Phone: [employer] Work Phone: 12-01-2019 06:40-0500 Diastolic blood pressure 68 mm[Hg] Daniel Fajardo MD Work Phone: [employer] Work Phone: 12-01-2019 06:40-0500 Heart rate 67 /min Daniel Fajardo MD Work Phone: [employer] Work Phone: 12-01-2019 06:40-0500 Respiratory rate 18 /min Daniel Fajardo MD Work Phone: [employer] Work Phone: 12-01-2019 06:40-0500 SaO2% (BldA) [Mass fraction] 95 % Daniel Fajardo MD Work Phone: [employer] Work Phone: 12-01-2019 06:40-0500 Systolic blood pressure 115 mm[Hg] Daniel Fajardo MD Work Phone: [employer] Work Phone: 12-01-2019 04:45-0500 Body mass index (BMI) [Ratio] 30.2 kg/m2 Daniel Fajardo MD Work Phone: [employer] Work Phone: 12-01-2019 04:45-0500 Body weight 82.33 kg Daniel Fajardo MD Work Phone: [employer] Work Phone: 11-30-2019 06:30-0500 Body height 165.1 cm Daniel Fajardo MD Work Phone: [employer] Work Phone: 11-28-2019 10:02-0500 Body height 165.1 cm Daniel Fajardo MD Work Phone: [employer] Work Phone: 11-28-2019 10:02-0500 Body mass index (BMI) [Ratio] 30.42 kg/m2 Daniel Fajardo MD Work Phone: [employer] Work Phone: 11-28-2019 10:02-0500 Body temperature 97.7 [degF] Daniel Fajardo MD Work Phone: [employer] Work Phone: 11-28-2019 10:02-0500 Body weight 82.92 kg Daniel Fajardo MD Work Phone: [employer] Work Phone: 11-28-2019 10:02-0500 Diastolic blood pressure 62 mm[Hg] Daniel Fajardo MD Work Phone: [employer] Work Phone: 11-28-2019 10:02-0500 Heart rate 80 /min Daniel Fajardo MD Work Phone: [employer] Work Phone: 11-28-2019 10:02-0500 Respiratory rate 20 /min Daniel Fajardo MD Work Phone: [employer] Work Phone: 11-28-2019 10:02-0500 SaO2% (BldA) [Mass fraction] 98 % Daniel Fajardo MD Work Phone: [employer] Work Phone: 11-28-2019 10:02-0500 Systolic blood pressure 111 mm[Hg] Daniel Fajardo MD Work Phone: [employer] Work Phone: Encounters Encounter Date Encounter Type Care Provider Facility Start: 06-22-2024 End: 06-22-2024 ambulatory KIMIRo BASS Not Available Start: 05-17-2024 End: 05-17-2024 ambulatory KIMI BASS Not Available Start: 03-19-2023 End: 03-19-2023 ambulatory TILE PRESSER KIMI BASS Facility: Start: 11-30-2019 End: 12-01-2019 Patient encounter procedure [facility] Start: 11-30-2019 End: 12-01-2019 Subsequent hospital visit by physician Daniel Fajardo MD Work Phone: [facility] Comment on above: History of total vag inal hysterectomy (TVH) (Primary Dx) Start: 11-28-2019 End: 12-03-2019 Patient encounter procedure [facility] Start: 11-28-2019 End: 12-02-2019 Subsequent hospital visit by physician Daniel Fajardo MD Work Phone: [facility] Comment on above: Pre-op testing Start: 11-24-2019 End: 11-27-2019 Patient encounter procedure [facility] Start: 11-24-2019 End: 11-26-2019 Subsequent hospital visit by physician Jaron [facility] Mammography Comment on above: Abnormality of right breast on screening mammogram Start: 10-14-2019 End: 10-17-2019 Patient encounter procedure [facility] Start: 10-14-2019 End: 10-16-2019 Subsequent hospital visit by physician Jaron Mammography Room At [facility] Mammography Comment on above: Screening for breast cancer Start: 09-30-2019 End: 10-01-2019 Patient encounter procedure [facility] Start: 09-30-2019 End: 09-30-2019 Subsequent hospital visit by physician [facility] Comment on above: Women's annual routi ne gynecological examination Procedures Date Procedure Procedure Detail Performing Clinician Start: 12-01-2019 DISCHARGE PATIENT DANIEL SUMIShauna Start: 12-01-2019 INCENTIVE SPIROMETRY RT DANIEL FAJARDO Start: 12-01-2019 INITIATE OXYGEN THERAPY PROTOCOL DANIEL FAJARDO Start: 12-01-2019 PULSE OXIMETRY, CONTINUOUS DANIEL FAJARDO Start: 12-01-2019 DIET GENERAL DANIEL FAJARDO Start: 12-01-2019 Blood count complete auto&auto difrntl wbc DANIEL SUMIS Start: 12-01-2019 INCENTIVE SPIROMETRY RT DANIEL JONASS Start: 12-01-2019 Blood count complete auto&auto difrntl wbc Daniel Fajardo MD Work Phone: Start: 12-01-2019 PULSE OXIMETRY, CONTINUOUS DANIEL HEDGES Start: 12-01-2019 DAILY WEIGHTS DANIEL JONASS Start: 12-01-2019 INTAKE AND OUTPUT DANIEL JONASS Start: 12-01-2019 PULSE OXIMETRY, CONTINUOUS DANIEL HEDGES Start: 12-01-2019 INCENTIVE SPIROMETRY RT DANIEL HEDGES Start: 11-30-2019 INCENTIVE SPIROMETRY RT DANIEL HEDGES Start: 11-30-2019 PULSE OXIMETRY, CONTINUOUS DANIEL HEDGES Start: 11-30-2019 INCENTIVE SPIROMETRY RT DANIEL HEDGES Start: 11-30-2019 INCENTIVE SPIROMETRY RT DANIEL HEDGES Start: 11-30-2019 PULSE OXIMETRY, CONTINUOUS DANIEL HEDGES Start: 11-30-2019 HEMOGLOBIN AND HEMATOCRIT, BLOOD DANIELLUCIUS FAJAROD Start: 11-30-2019 Level iv surg pathology gross&microscopic exam DANIEL SUMIShauna Start: 11-30-2019 Blood count hemoglobin Daniel Sandoval Work Phone: Start: 11-30-2019 PLACE INTERMITTENT PNEUMATIC COMPRESSION DEVICE DANIEL FAJARDO Start: 11-30-2019 AMBULATE PATIENT DANIELLUCIUS FAJARDO Start: 11-30-2019 BLADDER SCAN DANIEL FAJARDO Start: 11-30-2019 CATHETER REMOVAL DANIEL FAJARDO Start: 11-30-2019 FULL CODE DANIEL FAJARDO Start: 11-30-2019 INCENTIVE SPIROMETRY RT DANIELLUCIUS JONASS Start: 11-30-2019 INITIATE OXYGEN THERAPY PROTOCOL DANIEL JONASS Start: 11-30-2019 INTAKE AND OUTPUT DANIEL HEDGES Start: 11-30-2019 NOTIFY PHYSICIAN (SPECIFY) DANIEL FAJARDO Start: 11-30-2019 PATIENT MAY SHOWER DANIEL FAJARDO Start: 11-30-2019 PULSE OXIMETRY, CONTINUOUS DANIEL JONASS Start: 11-30-2019 REMOVE DRESSING DANIEL JONASS Start: 11-30-2019 STRAIGHT CATH DANIEL JONASS Start: 11-30-2019 VITAL SIGNS DANIEL FAJARDO Start: 11-30-2019 H/O: hysterectomy History of total vaginal hysterectomy (TVH) Daniel Fajardo MD Work Phone: Start: 11-30-2019 PATIENT STATUS (FROM ED OR OR/PROCEDURAL) DANIEL FAJARDO Start: 11-30-2019 TRANSFER PATIENT DANIEL FAJARDO Start: 11-30-2019 End: 11-30-2019 Vaginal hysterectomy uterus 250 gm/< Daniel Fajardo MD Work Phone: Start: 11-28-2019 Blood count complete auto&auto difrntl wbc DANIEL FAJARDO Start: 11-28-2019 Culture bacterial quanttative colony count urine DANIEL FAJARDO Start: 11-28-2019 TYPE AND SCREEN DANIEL FAJARDO Start: 11-28-2019 Antibody screen Daniel Fajardo MD Work Phone: Start: 11-28-2019 Blood count complete auto&auto difrntl wbc Daniel Fajardo MD Work Phone: Start: 11-28-2019 Blood typing serologic abo Daniel Fajardo MD Work Phone: Start: 11-28-2019 Culture bacterial quanttative colony count urine Daniel Fajardo MD Work Phone: Start: 11-24-2019 Diagnostic mammography computer-aided detcj uni DANIEL FAJARDO Start: 11-24-2019 Us breast uni real time with image complete DANIEL FAJARDO Start: 11-24-2019 Tomosynthesis, mammo Daniel Fajardo MD Work Phone: Start: 10-14-2019 Screening mammography bi 2-view breast inc cad DANIEL FAJARDO Start: 10-14-2019 Screening digital breast tomosynthesis bi Daniel Fajardo Work Phone: Start: 09-30-2019 Screen pap by naila FAJARDO Plan of Treatment Date Care Activity Detail Author Start: 09-30-2022 Cervical cancer screen Cervical canc er screen [facility]- [place], [place] Start: 11-30-2019 End: 11-30-2019 Admission to same day surgery center 11/30/2019 Surgery IP Unit Daniel Fajardo MD [address] [facility] [address] [place], [place] [id number] HYSTERECTOMY VAGINAL, TOTAL, POSS SALPINGECTOMY, POSSIBLE OOPHERECTOMY [facility] OR Comment on above: HYSTERECTOMY VAGINAL , TOTAL, POSS SALPINGECTOMY, POSSIBLE OOPHERECTOMY Start: 11-30-2019 Subsequent hospital visit by physician 11/30/2019 Hospital Encounter IP Unit Daniel Fajardo MD [address] [facility] [address] [address] [place] Start: 11-28-2019 End: 11-28-2019 Patient encounter procedure 11/28/2019 Appointment Pre-Admission Testing [facility] PRE ADMIT Start: 11-03-2019 End: 11-03-2019 Office Visit 11/03/2019 Office Visit Obstetrics and Gynecology Daniel Fajardo MD [address] [place] [address] [facility] [employer] Start: 07-17-2019 Influenza vaccination Flu vaccine (# 1) [place], [place] Start: 2018 Diabetes screen Diabetes screen [place], [place] Start: 2018 Lipid screen Lipid screen [place], [place] Start: 1999 Cervical cancer screen Cervical canc er screen [place], [place] Start: 1993 HIV screen HIV screen [place], [place] Start: 1989 DTaP/Tdap/Td vaccine (1 - Tdap) DTaP/Tdap/Td vaccine (1 - Tdap) [place], [place] Start: 02-02-1984 Pneumococcal 0-64 ye ars Vaccine (1 of 1 - PPSV23) Pneumococcal 0-64 years Vaccine (1 of 1 - PPSV23) [place], [place] End: 09-30-2019 Cytopathology procedure, preparation of smear, genital source PAP SMEAR Lab Routine Women's annual routine gynecological examination 1 Occurrences starting 09/30/2019 until 09/30/2019 [place] Comment on above: 1 Occurrences starti ng 09/30/2019 until 09/30/2019 Incentive spirometry Incentive s pirometry Respiratory Care Routine Every 2hr while awake until discontinued starting 11/30/2019 [facility] Work Phone: Comment on above: Every 2hr while awak e until discontinued starting 11/30/2019 Initiate Oxygen Ther apy Protocol Initiate Oxygen Therapy Protocol Respiratory Care Routine Daily until discontinued starting 11/30/2019 [employer] Phone: Comment on above: Daily until disconti nued starting 11/30/2019 Pulse oximetry, continuous Pulse oximetry, continuous Respiratory Care Routine Every 4hr until discontinued starting 11/30/2019 [employer] Phone: Comment on above: Every 4hr until disc ontinued starting 11/30/2019 End: 11-30-2019 Surgical Pathology Surgical Pathology Lab Routine Once for 1 Occurrences starting 11/30/2019 until 11/30/2019 [employer] Phone: Comment on above: Once for 1 Occurrenc es starting 11/30/2019 until 11/30/2019 End: 11-24-2019 US BREAST COMPLETE RIGHT US BREAST COMPLETE RIGHT Imaging Routine Abnormality of right breast on screening mammogram 1 Occurrences starting 11/24/2019 until 11/24/2019 [employer] Phone: Comment on above: 1 Occurrences starti ng 11/24/2019 until 11/24/2019 Payers Date Payer Category Payer Unknown [id number] 2018 Unknown xxxxxxxxxxxx [id number] 2018 Unknown [id number] 1978 Unknown [id number] 2.16.8 [id number] 1978 Unknown [id number] 2.16.8 [id number] 1978 Unknown [id number] 2.16.8 [id number] 1978 Unknown [id number] 2.16.8 [id number] 1978 Unknown [id number] 2.16.8 [id number] 1978 Unknown [id number] 2.16.8 [id number] 1978 Unknown [id number] 2.16.84 [id number] 1978 Unknown [id number] 2.16.84 [id number] 1978 Unknown [id number] 2.16.84 [id number] 1959 Unknown [id number] Social History Date Type Detail Facility Start: 09-30-2019 End: 11-30-2019 Tobacco smoking status NHIS Current every day smoker [place], [place] Start: 09-30-2019 End: 11-03-2019 Alcohol intake Lifetime non-drinker (finding) [place] Start: 09-30-2019 History SDOH Alcohol Frequency 1 [place] Sex Assigned At Not on file [place] History of tobacco use Cigarette Smoker [employer] Start: 11-30-2019 Alcohol intake Ex-drinker (finding) [facility] [employer] Work Phone: History of Present illness Narrative 12-01-2019 Mirna North RN - 12/01/2019 9:37 AM Mirna Rodrigues RN - 12/01/2019 9:32 AM Mirna Rodrigues RN - 12/01/2019 9:25 AM Mirna Rodrigues RN - 12/01/2019 9:13 AM EST Note Date & Type Note Facility 12-01-2019 History of Present illness Narrative Pt discharged home with family. Discharge instructions give, denies any questions, pt again states that she would like to schedule her own followup appoints. Pt able to void without difficulty, voided clear yellow urine. Pt states she would like to schedule her own followup appointment. Pt up to chair, tolerated well. Vaginal packing removed per orders, and then cannon catheter removed per orders, see flowsheet documentation. Pt dangled at bedside without concern. Pt able to ambulate with walker to nurses station and back. States no SOB or lightheadedness. Pt now resting comfortably with call light and belongings within reach. Vital signs and assessment done at this time. Pt is A&O x4, denies pain at this time. Lung sounds clear and bowel sounds hypoactive in all quadrants. No drainage to peripad at this time. Pt is comfortably resting with call light and belongings within reach. Will continue to monitor. Patient resting quietly with eyes closed. No distress noted [id number] Report given to Vickie Reed RN [id number] Pt ready to be seen at this time and Anesthesia paged. documented in this encounter [facility] Work Phone: History of Present illness Narrative 11-28-2019 Odilia Dior RN - 11/28/2019 10:00 AM Odilia Brand RN - 11/28/2019 10:00 AM EST Note Date & Type Note Facility 11-28-2019 History of Present illness Narrative [facility] Preadmission Testing Name: Megan Ragsdale : 1980 Patient (home) [phone] (work) Procedure TV Date of Procedure: 1-15-20 Surgeon: Daniel Fajardo MD Ht: 5' 5 (165.1 cm) Wt: 182 lb 12.8 oz (82.9 kg) Wt method: Actual Allergies: Allergies Allergen Reactions Amoxicillin Hives Peanut allergy: No Latex Allergy Screening Tool Have you ever had a reaction to or been told by a physician that you have an allergy to latex or natural rubber?: No Vitals: 11/28/19 1002 BP: 111/62 Pulse: 80 Resp: 20 Temp: 97.7 F (36.5 C) SpO2: 98% Patient's last menstrual period was 11/24/2019. Do you take blood thinners? [] Yes [x] No Instructed to stop blood thinners prior to procedure? [x] Yes [] No [] N/A Do you have sleep apnea? [] Yes [x] No Instructed to bring CPAP machine? [] Yes [] No [x] N/A Do you have acid reflux ? [] Yes [x] No Do you have hiatal hernia? [] Yes [x] No Do you ever experience motion sickness? [] Yes [x] No Have you had a respiratory infection or sore throat in last 4 weeks before surgery? [] Yes [x] No Do you have poorly controlled asthma or COPD? [] Yes [x] No Do you have a history of angina in the last month or symptomatic arrhythmia? [] Yes [x] No Do you have significant central nervous system disease? [] Yes [x] No Have you had an EKG, labs, or chest xray in last 12 months? If yes provide copies to anesthesia [] Yes [x] No [] Lab [] EKG [] CXR Have you had a stress test? [] Yes [x] No When/where: Was it normal? [] Yes [] No Do you or your family have a history of Malignant Hyperthermia? [] Yes [x] No PAT Call/Visit Questions Person Interviewed: PATIENT Surgery Time Verified: Yes Surgery Location Verified: Yes Patient Language: KYRGYZ Medical History Reviewed: Yes NPO Status Reinforced: Yes Ride and Caregiver Arranged: Yes Ride Caregiver Provider: NO ONE AT THIS TIME Patient Knows to Bring Current Medications: Yes Pre-AdmissionTesting Checklist Patient has been to this health system before?: Yes Does patient refuse blood?: No Healthcare Directive: No, patient does not have an advance directive for healthcare treatment Deputy County Clerk needed: No Patient can read and write?: Yes [id number]: Does the patient want to have any new prescriptions delivered to bedside prior to discharge?: No History given by: Patient Providing self care at home?: Yes Discharge transport (for same day patients): Family Patient instructed on the pre-operative, intra-operative, and post-operative process? Yes Medication instructions reviewed with patient? Yes Pre operative instruction sheet reviewed and given to patient in PAT? Yes Patient instructed on the pre-operative, intra-operative, and post-operative process. Patient instructed on NPO status. Medication instructions reviewed with patient. Pre operative instruction sheet reviewed and given to patient in PAT. documented in this encounter [employer] Phone: Evaluation note Note Date & Type Note Facility Evaluation note Diagnosis Abnormality of right breast on screening mammogram documented in this encounter [facility] Phone: Evaluation note Note Date & Type Note Facility Evaluation note Diagnosis Abnormality of right breast on screening mammogram documented in this encounter [facility] Phone: Evaluation note Note Date & Type Note Facility Evaluation note Diagnosis History of total vaginal hysterectomy (TVH)- Primary Uterine prolapse Uterine prolapse without mention of vaginal wall prolapse Intramural and subserous leiomyoma of uterus documented in this encounter [facility] Phone: Evaluation note Note Date & Type Note Facility Evaluation note Diagnosis Pre-op testing Preoperative examination, unspecified documented in this encounter [facility] Phone: Hospital Discharge instructions Attachments Note Date & Type Note Facility Hospital Discharge instructions The following attachments cannot be sent through Care Everywhere.Hysterectomy: Vaginal: Post-op (Ecuadorean)acetaminophen and oxycodone (Ecuadorean)documented in this encounter [facility] Phone: Assessments Diagnosis Women's annual routine gynecological examination Diagnosis Screening for breast cancer Breast screening, unspecified Advance Directives No Advanced Directives Records FoundDocuments on File Type Date Recorded 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 Expl 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 Advance Directives and Living Will Power of Platen Grinder Documents on File Type Date Recorded 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 Expl anation Advance Directives and Living Will Power of Platen Grinder Latest Code Status on File Code Status Date Activated Date Inactivated Comments Full Code 11/30/2019 1:04 PM Full Code 11/30/2019 6:37 AM 11/30/2019 12:24 PM Latest Code Status on File Code Status Date Activated Date Inactivated Comments Full Code 11/30/2019 1:04 PM 12/01/2019 11:50 AM Full Code 11/30/2019 6:37 AM 11/30/2019 12:24 PM Reason for Referral Status Reason Specialty Diagnoses / Procedures Referre d By Contact Referred To Contact Closed Radiology Diagnoses Screening for breast cancer Procedures CECE DIGITAL SCREEN W CAD BILATERAL HC MAMMO SCREENING INCL CAD IF PERF Daniel Fajardo MD [address] [place] [address] Status Reason Specialty Diagnoses / Procedures Referred By Contact Referred To Contact Pending Review Radiology Diagnoses Abnormality of right breast on screening mammogram Procedures CECE DIGITAL DIAGNOSTIC W OR WO CAD RIGHT HC MAMMO DGX UNILATERAL INCL CAD IF PERF Daniel Fajardo MD [address] [place] [address] [address] [place] [address] Status Reason Specialty Diagnoses / Procedures Referred By Contact Referred To Contact Pending Review Radiology Diagnoses Abnormality of right breast on screening mammogram Procedures US BREAST COMPLETE RIGHT HC US BREAST COMP Daniel Fajardo MD [address] [place] [address] [address] [place] [address] Summary Purpose Family History No Family History Records FoundNo Family History Records FoundNo Family History Records FoundNo Family History Records Found Hospital Course Note [facility] [address] [place] [address] DISCHARGE SUMMARY PATIENT NAME: MEGAN RAGSDALE V : 1980 MED REC NO: [id number] ROOM: [id number] ACCOUNT NO: [id number] ADMIT DATE: 11/30/2019 PROVIDER: Daniel Fajardo MD DISCH DATE: 12/01/2019 DATE OF ADMISSION: 11/30/2019 DATE OF DISCHARGE: 12/01/2019 FINAL DIAGNOSIS: Uterine prolapse and uterine fibroids, symptomatic. POSTOPERATIVE DIAGNOSIS: Uterine prolapse and uterine fibroids, symptomatic, pending final surgical pathology. SURGICAL PROCEDURE: Total vaginal hysterectomy with right salpingectomy. DISCHARGE: Please see H and P for complete details, but is that of a 39-year-old white female 3, para 3 with known fibroids, who presented with uterine prolapse. The patient had also had a sterilization and endometrial ablation performed. The surgery was performed on the morning of admission and was without any complication and about a 200 mL blood loss. The patient did well during her postoperative recove (more content not included)... Additional Source Comments Reason for Visit (unrecogniz ed section and content) Status Reason Specialty Diagnoses / Procedures Referre d By Contact Referred To Contact Closed Radiology Diagnoses Screening for breast cancer Procedures CECE DIGITAL SCREEN W CAD BILATERAL HC MAMMO SCREENING INCL CAD IF PERF Daniel Fajardo MD [address] [place] [address] Status Reason Specialty Diagnoses / Procedures Referred By Contact Referred To Contact Pending Review Radiology Diagnoses Abnormality of right breast on screening mammogram Procedures CECE DIGITAL DIAGNOSTIC W OR WO CAD RIGHT HC MAMMO DGX UNILATERAL INCL CAD IF PERF Daniel Fajardo MD [address] [place] [address] [address] [place] [address] Status Reason Specialty Diagnoses / Procedures Referred By Contact Referred To Contact Pending Review Radiology Diagnoses Abnormality of right breast on screening mammogram Procedures US BREAST COMPLETE RIGHT HC US BREAST COMP Daniel Fajardo MD [address] [place] [address] [address] [place] [address] Status Reason Specialty Diagnoses / Procedures Referre d By Contact Referred To Contact Diagnoses Uterine fibroid SYMPTOMATIC FIBROIDS Procedures MI VAGINAL HYSTERECTOMY,UTERUS 250 GMS/< HYSTERECTOMY VAGINAL, TOTAL, POSS SALPINGECTOMY, POSSIBLE OOPHERECTOMY Daniel Fajardo MD [address] [place] [address] [address] [place] [address] [facility] INFORMATION SOURCE (unrecogn ized section and content) DATE CREATED AUTHOR 12/03/2019 Carlyn [place] DATE CREATED AUTHOR AUTHOR'S ORGANIZ ATION 06/04/2020 Viet Hendricks [facility] DATE CREATED AUTHOR AUTHOR'S ORGANIZ ATION 03/26/2023 [facility] DATE CREATED AUTHOR AUTHOR'S ORGANIZ ATION 06/24/2024 [facility] FOR RECORDS PERTAINING TO PATIENTS WHO ARE OR HAVE BEEN ENROLLED IN A CHEMICAL DEPENDENCY/SUBSTANCEABUSE PROGRAM, SOME INFORMATION MAY BE OMITTED. This clinical summary was aggregated from multiple sources. Caution should be exercised in using it in the provision of clinical care. This summary normalizes information from multiple sources, and as a consequence, information in this document may materially change the coding, format and clinical context of patient data. In addition, data may be omitted in some cases. CLINICAL DECISIONS SHOULD BE BASED ON THE PRIMARY CLINICAL RECORDS. [employer] provides no warranty or guarantee of the accuracy or completeness of information in this document.
[2024-08-08 10:11] LABS: Internal Control Within Normal Limits; SARS-CoV-2 Ag POSITIVE (NEGATIVE)
--- NOTE | 2024-08-08 10:22 | ED.GENADUL1 ---
HPI HPI - General Adult General Chief complaint: Recheck/Abnormal Lab/Rx Stated complaint: RECHECK, COVID Time Seen by Provider: 08/08/24 09:36 History of Present Illness HPI narrative: The patient is coming to the ER requesting a test for COVID-19 as it is requested by her work, mentioned that she had a test at home but it was negative and she does have a somewhat low-grade fever. She denies any significant shortness of breath or any other complaints Related Data Home Medications ?Medication ?Instructions ?Recorded ?Confirmed No Known Home Medications 08/08/24 08/08/24 Allergies Allergy/AdvReac Type Severity Reaction Status Date / Time amoxicillin AdvReac Severe Hives Verified 08/08/24 09:28 Opioid HPI Opioid Management Most Recent Opioid Data: No Data to Display Review of Systems ROS Status of ROS 10 or more systems reviewed and unremarkable except as noted in history and below PFSH PFSH Social History Little interest or pleasure in doing things: not at all Feeling down, depressed, or hopeless: not at all Exam Narrative Exam Narrative: Nurses notes and vital signs reviewed and patient is not hypoxic. General: Well-appearing and in no apparent distress. Skin: Warm, dry, no pallor noted. No rash. Head: Normocephalic, atraumatic. Neck: Supple, non-tender. Eye: Pupils are equal, round and EOMI. No scleral icterus. Ears, Nose, Mouth, and Throat: TM are clear, no nasal mucosal hypertrophy. Oral mucosa is moist, no posterior oropharynx erythema, uvula is mid-line Cardiovascular: Regular Rate and Rhythm without murmur, gallop or rub. Respiratory: No accessory muscle use or respiratory distress. Lungs are clear to auscultation, no wheezing, rales or rhonchi Chest Wall: no tenderness Back: No midline thoracic or lumbar vertebral tenderness. No CVA tenderness Musculoskeletal: normal ROM, no calf or popliteal tenderness, no lower extremity edema/swelling GI: Abdomen is soft, non-distended. Normal bowel sounds. No masses appreciated. No tenderness to palpation. No rebound, guarding, or rigidity noted. Neurological: A&O x4. No cranial nerve dysfunction observed. No truncal ataxia. Moves all extremities. Sensation intact. Psychiatric: Cooperative and interactive. Normal mood and affect. Constitutional Vital Signs, click to edit/add: Last Vital Signs Temp 100.2 F 08/08/24 09:28 Pulse 88 08/08/24 10:26 Resp 18 08/08/24 10:26 BP 126/88 08/08/24 10:26 Pulse Ox 96 08/08/24 10:26 O2 Del Method Room Air 08/08/24 09:28 Course Vital Signs Vital signs: Vital Signs Temperature 100.2 F 08/08/24 09:28 Pulse Rate 88 08/08/24 09:28 Respiratory Rate 20 08/08/24 09:28 Blood Pressure 111/87 08/08/24 09:28 Pulse Oximetry 100 08/08/24 09:28 Oxygen Delivery Method Room Air 08/08/24 09:28 Temperature 100.2 F 08/08/24 09:28 Pulse Rate 88 08/08/24 10:26 Respiratory Rate 18 08/08/24 10:26 Blood Pressure 126/88 08/08/24 10:26 Pulse Oximetry 96 08/08/24 10:26 Oxygen Delivery Method Room Air 08/08/24 09:28 Medical Decision Making [facility] Narrative Medical decision making narrative: The patient is coming to the ER just for COVID testing for work and her test in the ER was positive she does not have any significant symptoms at the Instructed about the importance of monitoring her symptoms and supportive care She was given a work excuse for the next 5 days The patient is to follow up with primary care physician in next 2-3 days or to return to the emergency department should any of the signs or symptoms worsen or new symptoms develop. The patient agrees with the following Diagnosis and Treatment plan and the patient will be discharged home. Lab Data Labs: Lab Results 08/08/24 Range/Units 09:45 SARS-CoV-2 Ag (CV2AG) Positive A (NEGATIVE) Discharge Plan Discharge Chief Complaint: Recheck/Abnormal Lab/Rx Clinical Impression: COVID-19 Patient Disposition: Home, Self-Care Time of Disposition Decision: 10:22 Condition: Good Prescriptions / Home Meds: No Action No Known Home Medications Print Language: Brazilian Instructions: COVID-19 (Coronavirus Disease 2019) (ED) Referrals: Kimi Cerda NP [Primary Care Provider] - 1 week Discharge Date/Time: 08/08/24 10:27
[2024-08-08 10:26] VITALS: BP 126/88; PULSE 88; O2SAT 96
== END 2024-08-08 10:27 | disposition home or self-care (01) ==
PROVIDERS: Emergency Provider Emergency Medicine; PCP Nurse Practitioner
DX: U07.1 COVID-19 (principal)
CPT/HCPCS: 87811; 99283